=== PATIENT | male | born 1995 | race Hispanic/Latino ===

== ENCOUNTER 2024-09-21 21:31 | Emergency (ER) | payer SELFPAY ==
[~2024-09-21] VITALS: Ht 177.8 cm; Wt 81.6 kg
[2024-09-21 22:15] LABS: BASOPHILS # (AUTO) 0.03 K/uL (0.00-0.20); BASOPHILS % (AUTO) 0.2 % (0.0-5.0); EOSINOPHILS # (AUTO) 0.03 K/uL (0.00-0.70); EOSINOPHILS % (AUTO) 0.2 % (0.0-8.0); HEMATOCRIT 45.2 % (42-54); IMMATURE GRANULOCYTE ABSOLUTE 0.06 K/uL (0-1); LYMPHOCYTES # (AUTO) 1.4 K/uL (1.0-4.8); LYMPHOCYTES % (AUTO) 9.5 % (21.0-51.0); MEAN CORPUSCULAR HEMOGLOBIN 31.7 pg (27.0-33.0); MEAN CORPUSCULAR HGB CONC 34.1 g/dL (32.0-36.0); MONOCYTES # (AUTO) 0.5 K/uL (0.1-1.0); MONOCYTES % (AUTO) 3.5 % (3.0-13.0); NEUTROPHILS % (AUTO) 86.2 % (40.0-77.0); PLATELET COUNT (AUTO) 212 K/uL (130-400); RED BLOOD CELL COUNT(AUTO) 4.86 MIL/uL (4.50-6.20); RED CELL DISTRIBUTION WIDTH 12.6 % (11.0-15.5); WHITE BLOOD COUNT (AUTO) 15.1 K/uL (4.8-10.8)
[2024-09-21] MEDS: MAG/ALUM/SIMETH 30 ML UDCUP PO ONE (22:15)
[2024-09-21] MEDS: LIDOCAINE HCL 2% VISCOUS 15 ML UDCUP PO ONE (22:16)
[2024-09-21] MEDS: DICYCLOMINE HCL 10 MG/5 ML ML PO ONE (22:16)
[2024-09-21] MEDS: FAMOTIDINE 20MG VIAL IV STA (22:16)
[2024-09-21] MEDS: 0.9%NACL 1000ML 1,000 ML IV STA (22:16)
[2024-09-21] MEDS: ondanSETRON 4MG INJ IVP STA (22:16)
[2024-09-21 22:29] LABS: BILIRUBIN,TOTAL 0.8 mg/dL (0.2-1.0); TOTAL PROTEIN, SERUM 7.9 g/dL (6.0-8.3)
[2024-09-21 22:32] LABS: POTASSIUM 2.8 mmol/L (3.5-5.1)
[2024-09-21] MEDS: PoTASSium BIcarbonate/CIT AC 25 MEQ TABLET.EFF PO ONE (22:44)
[2024-09-21 23:28] LABS: APPEARANCE,URINE CLEAR (CLEAR); BILIRUBIN,URINE NEGATIVE (NEGATIVE); GLUCOSE, URINE (UA) NEGATIVE (NEGATIVE); KETONES,URINE 20 mg/dL (NEGATIVE); LEUKOCYTE ESTERASE ,URINE NEGATIVE Leu/uL (NEGATIVE); NITRATE,URINE NEGATIVE (NEGATIVE); OCCULT BLOOD,URINE NEGATIVE (NEGATIVE); PROTEIN,URINE NEGATIVE (NEGATIVE); UROBILINOGEN,URINE 0.2 mg/dL (0.2-1.0)
[2024-09-21 23:33] LABS: ADD UA MICROSCOPIC YES; COLOR,URINE Light-Yellow (YELLOW)
[2024-09-21 23:35] LABS: AMPHET/METH SCREEN,URINE NEGATIVE (NEGATIVE); BARBITURATE SCREEN, URINE NEGATIVE (NEGATIVE); BENZODIAZEPINES SCREEN,URINE NEGATIVE (NEGATIVE); CANNABINOID SCREEN,URINE POSITIVE (NEGATIVE); COCAINE SCREEN,URINE NEGATIVE (NEGATIVE); OPIATE SCREEN,URINE NEGATIVE (NEGATIVE); PHENCYCLIDINE SCREEN,URINE NEGATIVE (NEGATIVE)
[2024-09-21 23:37] LABS: RBC,URINE 0-1 /HPF (0-1); WBC,URINE 0-1 /HPF (0-1)
[2024-09-22] MEDS: LORazepam 2 MG/ML 1 ML VIAL IVP STA (00:44)
[2024-09-22 00:45] VITALS: BP 149/49; PULSE 51; RESP 20; TEMP 98.4; O2SAT 100
--- NOTE | 2024-09-22 01:06 | ERN ---
ED Note History of Present Illness Stated Complaint: EPIGASTRIC PAIN, VOMITING X 5 EPISODES Chief Complaint: Abdominal Pain Time Seen by MD: 21:44 Time Seen by Midlevel: 21:49 Dictation: 29-year-old male with a history of seizures and anxiety coming in complaining of epigastric pain onset 1 hour prior to arrival while he was eating. Patient states he has had five episodes of vomiting, no blood. Denies any fever, cough, diarrhea, congestion. Allergies: Coded Allergies: No Known Allergies (Unverified Allergy, Unknown, 09/21/24) Past Medical History Past Medical History: Anxiety, Seizure Surgical History: None Review of System Dictation Constitutional: Negative for fever,chills, and weight loss Eyes: Negative for injury, pain,redness, and discharge ENT: Negative for injury,pain or swelling Cardiovascular: Negative for chest pain, palpitations, and edema Respiratory: Negative for shortness of breath, cough, and wheezing, Abdomen/GI: Complaining of epigastric pain, nausea and vomiting, no diarrhea, and no constipation Back: Negative for injury and pain : Negative for injury, bleeding and discharge MS/Extremity: Negative for injury and deformity Skin: Negative for rash, and discoloration Neuro: Negative for headache, weakness, numbness, tingling, and seizure Psych: Negative for suicide ideation, homicidal ideation, and hallucinations Review of Systems: was completed Initial Vital Sign VS Vital Signs Date Time Temp Pulse Resp B/P (MAP) Pulse Ox O2 Delivery O2 Flow Rate FiO2 09/21/24 21:33 98.1 62 22 144/72 100 Room Air 0 09/21/24 21:33 21 Physical Exam Dictation General: awake, alert, NAD Head/Face: Normocephalic, atraumatic Eyes: PERRL, EOMI, vision at baseline ENT: oral cavity clear, TMs clear, no signs of infection Neck: Trachea midline, supple, no nuchal rigidity Cardiovascular: RRR, normal S1/S2, No MRGs, no JVD Respiratory: CTAB, no respiratory distress, No rales or wheezes Abdomen: Soft, non-tender, non-distended, normal bowel sounds, no guarding or rebound. Skin: Warm, dry, normal turgor, no rash MS/Extremity: Pulses equal, no cyanosis, neurovascular intact, FROM Neuro: COAx4, GCS 15, strength 5/5, CN 2-12 intact, normal cerebellar exam, normal gait, Psych: Normal behavior, mood, and affect normal Results (Laboratory/Radiology) Laboratory/Radiology Laboratory Tests Test 09/21/24 22:04 09/21/24 23:18 09/22/24 01:16 09/22/24 01:37 White Blood Count 15.1 K/uL (4.8-10.8) H Red Blood Count 4.86 MIL/uL (4.50-6.20) Hemoglobin 15.4 g/dL (14.0-18.0) Hematocrit 45.2 % (42-54) Mean Corpuscular Volume 93.0 fL (79-99) Mean Corpuscular Hemoglobin 31.7 pg (27.0-33.0) Mean Corpuscular Hemoglobin Concent 34.1 g/dL (32.0-36.0) Red Cell Distribution Width 12.6 % (11.0-15.5) Platelet Count 212 K/uL (130-400) Mean Platelet Volume 11.6 fL (7.5-10.5) H Immature Granulocyte % (Auto) 0.4 % (0-1) Neutrophils (%) (Auto) 86.2 % (40.0-77.0) H Lymphocytes (%) (Auto) 9.5 % (21.0-51.0) L Monocytes (%) (Auto) 3.5 % (3.0-13.0) Eosinophils (%) (Auto) 0.2 % (0.0-8.0) Basophils (%) (Auto) 0.2 % (0.0-5.0) Neutrophils # (Auto) 13.0 K/uL (1.8-7.7) H Lymphocytes # (Auto) 1.4 K/uL (1.0-4.8) Monocytes # (Auto) 0.5 K/uL (0.1-1.0) Eosinophils # (Auto) 0.03 K/uL (0.00-0.70) Basophils # (Auto) 0.03 K/uL (0.00-0.20) Absolute Immature Granulocyte (auto 0.06 K/uL (0-1) Nucleated Red Blood Cells 0.0 % (0.0-0.19) White Cell Morphology Comment See comments Sodium Level 142 mmol/L (136-145) Potassium Level 2.8 mmol/L (3.5-5.1) *L 3.8 mmol/L (3.5-5.1) Chloride Level 103 mmol/L (101-111) Carbon Dioxide Level 26 mmol/L (21-32) Blood Urea Nitrogen 6 mg/dL (7-18) L Creatinine 1.0 mg/dL (0.5-1.3) Glomerular Filtration Rate Calc 106 mL/min (>90) Random Glucose 113 mg/dL (70-105) H Total Calcium 9.1 mg/dL (8.5-10.1) Total Bilirubin 0.8 mg/dL (0.2-1.0) Aspartate Amino Transf (AST/SGOT) 10 U/L (10-37) Alanine Aminotransferase (ALT/SGPT) 14 U/L (12-78) Alkaline Phosphatase 80 U/L (50-136) Total Protein 7.9 g/dL (6.0-8.3) Albumin 4.0 g/dL (3.5-5.0) Lipase 84 U/L (16-77) H Urine Color Light-Yellow (YELLOW) Urine Appearance CLEAR (CLEAR) Urine pH 8.0 (5.0-8.0) Urine Specific [place] 1.008 (1.001-1.031) Urine Protein NEGATIVE mg/dL (NEGATIVE) Urine Glucose (UA) NEGATIVE mg/dL (NEGATIVE) Urine Ketones 20 mg/dL (NEGATIVE) H Urine Occult Blood NEGATIVE (NEGATIVE) Urine Nitrate NEGATIVE (NEGATIVE) Urine Bilirubin NEGATIVE mg/dL (NEGATIVE) Urine Urobilinogen 0.2 mg/dL (0.2-1.0) Urine Leukocyte Esterase NEGATIVE Jeffrey/uL Urine RBC 0-1 /HPF (0-1) Urine WBC 0-1 /HPF (0-1) Urine Bacteria None /HPF (None Seen) Urine Opiates Screen NEGATIVE (NEGATIVE) Urine Barbiturates Screen NEGATIVE (NEGATIVE) Urine Phencyclidine Screen NEGATIVE (NEGATIVE) Urine Amphetamines Screen NEGATIVE (NEGATIVE) Urine Benzodiazepines Screen NEGATIVE (NEGATIVE) Urine Cocaine Screen NEGATIVE (NEGATIVE) Urine Marijuana (THC) Screen POSITIVE (NEGATIVE) H Blood Gas Specimen Type Venous Venous Blood pH 7.336 (7.320-7.430) Venous Blood pCO2 at Patient Temp 7 (38-54) *L Venous Blood pO2 at Patient Temp 106.2 mmHg (23.0-48.0) H Venous Blood HCO3 3.9 (22.0-29.0) L Venous Blood Base Excess -18.0 (-2.0-3.0) L Sodium (Blood Gas) 147 MMOL/L (136-145) H Bedside Potassium (Blood Gas) < 1.5 MMOL/L (3.4-4.5) *L Bedside Chloride (Blood Gas) > 126 MMOL/L (98-107) *H Bedside Ionized Calcium (Blood Gas) < 0.50 MMOL/L (1.15-1.33) L Bedside Lactic Acid (Blood Gas) < 0.50 MMOL/L (0.36-0.75) Blood Gas Temperature 37.0 CELSIUS (35.5-37.0) FiO2 21.0 % Blood Gas Specimen Comment IV RH Labs Reviewed?: Yes ED Course ED Course Orders Procedure Category Date Status Time Cbc With Differential LAB 09/21/24 Complete 21:54 Comprehensive LAB 09/21/24 Complete Metabolic Panel 21:54 Lipase LAB 09/21/24 Complete 21:54 Urinalysis Profile LAB 09/21/24 Complete 21:54 Drug Screen Urine LAB 09/21/24 Complete 21:54 0.9%Nacl 1000ml (Ns PHA 09/21/24 Complete 1000ml) 21:54 Ondansetron 4mg Inj PHA 09/21/24 Complete (Zofran 4mg Inj) 21:54 Famotidine 20mg Vial PHA 09/21/24 Complete (Pepcid 20mg Vial) 21:54 Lidocaine Hcl 2% PHA 09/21/24 Complete Viscous (Lidocaine Hcl 22:00 Mag/Alum/Simeth 30ml PHA 09/21/24 Complete (Maalox Plus 30ml) 22:00 Dicyclomine Hcl PHA 09/21/24 Complete (Bentyl 10mg/5ml 22:00 Potassium Bicarb/Cit PHA 09/21/24 Complete Ac 25meq (K-Lyte Ta 23:00 Lorazepam 2 Mg PHA 09/22/24 Complete (Ativan) 00:25 Venous Blood Gas + RT 09/22/24 Transmitted 01:03 Venous Blood Gas Plus LAB 09/22/24 In Process 01:16 Potassium LAB 09/22/24 Complete 01:19 Current Medications Medications (Trade) Dose Ordered Sig/Nora Route PRN Reason Start Time Stop Time Status Last Admin Dose Admin Al Hydroxide/Mg Hydroxide (MAALox PLUS 30ML) 30 ml ONCE ONCE PO 09/21/24 22:00 09/21/24 22:01 DC 09/21/24 22:15 Dicyclomine HCl (Bentyl 10mg/5ml Syrup) 10 mg ONCE ONCE PO 09/21/24 22:00 09/21/24 22:01 DC 09/21/24 22:16 Famotidine (Pepcid 20mg Vial) 20 mg ONCE STAT IV 09/21/24 21:54 09/21/24 21:56 DC 09/21/24 22:16 Lidocaine HCl (Lidocaine HCl 2% Viscous) 10 ml ONCE ONCE PO 09/21/24 22:00 09/21/24 22:01 DC 09/21/24 22:16 Lorazepam (AtiVAN) 1 mg ONCE STAT IVP 09/22/24 00:25 09/22/24 00:28 DC 09/22/24 00:44 Ondansetron HCl (zoFRAN 4MG INJ) 4 mg ONCE STAT IVP 09/21/24 21:54 09/21/24 21:56 DC 09/21/24 22:16 Potassium Bicarbonate (K-Lyte Tablet Eff 25 Meq Tablet.eff) 50 meq ONCE ONCE PO 09/21/24 23:00 09/21/24 23:01 DC 09/21/24 22:44 Sodium Chloride 1,000 ml @ 1,000 mls/hr Q1H STAT IV 09/21/24 21:54 09/21/24 22:53 DC 09/21/24 22:16 Vital Signs Date Time Temp Pulse Resp B/P (MAP) Pulse Ox O2 Delivery O2 Flow Rate FiO2 09/22/24 00:45 98.4 51 20 149/49 100 Room Air* 0 21 09/21/24 21:33 98.1 62 22 144/72 100 Room Air* 0 21 09/21/24 21:33 98.1 62 22 144/72 100 Room Air 0 Medical Decision Making MDM MDM:29-year-old male with a history of seizures and anxiety coming in complaining of epigastric pain onset 1 hour prior to arrival while he was eating. Patient states he has had five episodes of vomiting, no blood. Denies any fever, cough, diarrhea, congestion. CBC shows leukocytosis of 15, this could be related to vomiting multiple times. No anemia, no thrombocytopenia. Chemistry shows hypokalemia at 2.8, replacement given in the emergency room. Repeat potassium is 3.8. Function. Lipase is mildly elevated at 84, no transaminitis, T bili within normal range. Urine does not show any urinary tract infection. Toxicology positive for THC. Fluids, potassium, Zofran, and Ativan given for vomiting. We will prescribe patient has Zofran to take at home for nausea or vomiting. Educated to stop smoking marijuana. Follow up with PCP in 1-2 days. Differential diagnosis: Gastroenteritis, gastroparesis, drug use, dehydration Rationale: Tests considered and ordered secondary to shared decision making include: Previous outside records reviewed: Old ER visits. Risk of complication and/or morbidity or mortality of patient management: None Medications-Per medication reconciliation Need for hospitalization: Patient does not meet criteria for hospitalization. Need for emergency major/minor surgery: No There are no social concerns with this patient. Prescription drug management Prescriptions will include symptomatic care Patient's prior external medical records from other ER visits were reviewed by me as indicated. Prior testing and results from previous visits were reviewed. Prior tests were taken into account with medical decision making and resource utilization, independent historian/historians were used to obtain complete medical history. I independently interpreted the test that were performed, results were reviewed by me and considered findings on radiology if ordered. Medical management and examination interpretation discussions were had by me with other qualified healthcare professionals as indicated for the patient's care. DX & DISP Disposition: Discharge Departure Impression: Primary Impression: Nausea & vomiting Additional Impressions: Hypokalemia, Marijuana abuse Condition: Stable Scripts Ondansetron (Ondansetron Odt) 4 Mg Tab.rapdis 4 MG PO Q6HPRN PRN for nausea, #16 TAB 0 Refills Prov: CHERELLE BAUER NP 09/22/24 Referrals: ALBERTO BACK MD (PCP) Time of Disposition: 01:57 I have reviewed the case, and I agree with, Diagnosis and Plan CHERELLE BAUER NP Sep 22, 2024 01:06
[2024-09-22 01:17] LABS: DEVICE COMMENT IV RH; HCO3,VENOUS BLOOD GAS 3.9 (22.0-29.0); PCO2,VENOUS BLOOD GAS 7 (38-54); PH,VENOUS BLOOD GAS 7.336 (7.320-7.430); PO2,VENOUS BLOOD GAS 106.2 mmHg (23.0-48.0)
[2024-09-22] MEDS ORDERED: DICYCLOMINE HCL 20 MG TAB PO STA (01:56)
[2024-09-22] MEDS ORDERED: ONDA-243 PO (01:59)
[2024-09-22] MEDS: DICYCLOMINE HCL 10 MG/5 ML ML PO ONE (02:24)
== END 2024-09-22 02:26 | disposition home or self-care (01) ==
LOC: EDH 21:31
DX: R11.2 Nausea with vomiting, unspecified (principal); E87.6 Hypokalemia; F12.10 Cannabis abuse, uncomplicated; F41.9 Anxiety disorder, unspecified
CPT/HCPCS: 99284; 96374; 96375 ×2; 82947; 80053; 82803; 80305; 83690; 85025; 83605; 36415 ×2; 82435; 84132 ×2; 84295; 81001; 36600; J3490; J7030; J2405; J2060

== ENCOUNTER 2025-02-10 17:40 | Emergency (ER) | payer SELFPAY ==
[~2025-02-10] VITALS: Ht 177.8 cm; Wt 81.6 kg
[~2025-02-10 17:40] MED LIST: ONDA-243 PO
[2025-02-10] MEDS: 0.9%NACL 1000ML 1,000 ML IV ONE (18:48)
[2025-02-10] MEDS: hydrOXYzine 50MG VIAL 50 MG/ML VIAL IM ONE (18:49)
[2025-02-10 19:15] LABS: CREATININE 0.9 mg/dL (0.5-1.3)
[2025-02-10 19:20] LABS: POTASSIUM 2.9 mmol/L (3.5-5.1)
[2025-02-10 19:26] LABS: BASOPHILS # (AUTO) 0.05 K/uL (0.00-0.20); BASOPHILS % (AUTO) 0.5 % (0.0-5.0); EOSINOPHILS # (AUTO) 0.07 K/uL (0.00-0.70); EOSINOPHILS % (AUTO) 0.7 % (0.0-8.0); HEMATOCRIT 42.5 % (42-54); IMMATURE GRANULOCYTE ABSOLUTE 0.03 K/uL (0-1); LYMPHOCYTES # (AUTO) 1.5 K/uL (1.0-4.8); MEAN CORPUSCULAR HEMOGLOBIN 32.7 pg (27.0-33.0); MEAN CORPUSCULAR HGB CONC 35.3 g/dL (32.0-36.0); MEAN CORPUSCULAR VOLUME 92.6 fL (79-99); MONOCYTES # (AUTO) 0.6 K/uL (0.1-1.0); MONOCYTES % (AUTO) 5.7 % (3.0-13.0); NEUTROPHILS # (AUTO) 7.4 K/uL (1.8-7.7); NEUTROPHILS % (AUTO) 76.8 % (40.0-77.0); PLATELET COUNT (AUTO) 216 K/uL (130-400); RED BLOOD CELL COUNT(AUTO) 4.59 MIL/uL (4.50-6.20); RED CELL DISTRIBUTION WIDTH 12.1 % (11.0-15.5); WHITE BLOOD COUNT (AUTO) 9.6 K/uL (4.8-10.8)
[2025-02-10] MEDS: PoTASSium BIcarbonate/CIT AC 25 MEQ TABLET.EFF PO SCH (19:47)
[2025-02-10] MEDS: diazePAM 5 MG/ML 2 ML SYG IVP SCH (19:47)
--- NOTE | 2025-02-10 19:56 | ERN ---
General Chief Complaint: Anxiety/Panic Attack Stated Complaint: MULTIPLE COMPLAINTS,AMA Time Seen by MD: 17:46 Time Seen by Midlevel: 17:46 Source: patient History of Present Illness Initial Comments Patient is a 29-year-old male presenting to the emergency department for evaluation of anxiety. According to the dad the patient was had multiple stressors in his life. On arrival with the patient feels anxious. Denies any other symptoms Allergies: Coded Allergies: No Known Allergies (Unverified Allergy, Unknown, 09/21/24) Home Meds Active Scripts Ondansetron (Ondansetron Odt) 4 Mg Tab.rapdis, 4 MG PO Q6HPRN PRN for nausea, #16 TAB 0 Refills Prov:CHERELLE BAUER NP 09/22/24 Past Medical History Past Medical History: Anxiety, Seizure Past Surgical History: None ROS Dictation CONSTITUTIONAL: Negative except for HPI HEAD/FACE: Negative except for HPI EENT: Negative except for HPI RESPIRATORY: Negative except for HPI GASTROINTESTINAL/ABDOMINAL: Negative except for HPI GENITOURINARY: Negative except for HPI MUSCULOSKELETAL: Negative except for HPI INTEGUMENTARY: Negative except for HPI NEUROLOGICAL/PSYCH: Negative except for HPI HEMATOLOGIC/LYMPHATIC: Negative except for HPI All Systems Negative, Except as noted above. 13 point review of systems assessed and all negative except for above. Physical Exam Physical Exam Dictation Vital Signs reviewed General Appearance: Alert, oriented x 3, no acute distress, well developed, nourished anxious appearing Head and Face: non-traumatic. Eyes: PERRL, pink conjunctivas, eyelid no trauma, anterior chamber with arcus senilis. Ears: Pinnas intact and no signs of trauma or erythema ear canals clear and no discharge TM no erythema Nose: No discharge, no bleeding. Oropharynx: Mouth normal, tongue pink, pharynx clear,no erythema, tonsils no exudates, no abscesses noted, mucous membrane moist Neck: Supple, non-tender, no thyromegaly, no masses, no JVD, no bruits Breast:Deferred Chest:No tenderness, no crepitus, no paradoxical movement, no retractions Lungs:Clear, well-ventilated, symmetric, no rales, no wheezing, no rhonchi, no stridor, good breath sounds bilaterally Heart: Regular rate, regular rhythm, no murmur, no gallops Vascular: no peripheral edema, Abdomen: Soft, positive bowel sounds, nondistended, no guarding, nontender, no rebound, no masses no hepatomegaly, no splenomegaly, no Guzman's sign, no hernias. Rectal: Deferred Genital: Deferred Neurological: Normal speech, motor function intact, sensory function intact Musculoskeletal: Neck nontender, full range of motion, back nontender, full range of motion, Extremities: nontender, full range of motion Skin: Color pink, dry, no turgor, no rash, no lacerations, no abrasions, no contusions. Lymphatic: Deferred Results Laboratory and Microbiology Lab and Micro Result Laboratory Tests Test 02/10/25 18:48 White Blood Count 9.6 K/uL (4.8-10.8) Red Blood Count 4.59 MIL/uL (4.50-6.20) Hemoglobin 15.0 g/dL (14.0-18.0) Hematocrit 42.5 % (42-54) Mean Corpuscular Volume 92.6 fL (79-99) Mean Corpuscular Hemoglobin 32.7 pg (27.0-33.0) Mean Corpuscular Hemoglobin Concent 35.3 g/dL (32.0-36.0) Red Cell Distribution Width 12.1 % (11.0-15.5) Platelet Count 216 K/uL (130-400) Mean Platelet Volume 11.6 fL (7.5-10.5) H Immature Granulocyte % (Auto) 0.3 % (0-1) Neutrophils (%) (Auto) 76.8 % (40.0-77.0) Lymphocytes (%) (Auto) 16.0 % (21.0-51.0) L Monocytes (%) (Auto) 5.7 % (3.0-13.0) Eosinophils (%) (Auto) 0.7 % (0.0-8.0) Basophils (%) (Auto) 0.5 % (0.0-5.0) Neutrophils # (Auto) 7.4 K/uL (1.8-7.7) Lymphocytes # (Auto) 1.5 K/uL (1.0-4.8) Monocytes # (Auto) 0.6 K/uL (0.1-1.0) Eosinophils # (Auto) 0.07 K/uL (0.00-0.70) Basophils # (Auto) 0.05 K/uL (0.00-0.20) Absolute Immature Granulocyte (auto 0.03 K/uL (0-1) Nucleated Red Blood Cells 0.0 % (0.0-0.19) Sodium Level 143 mmol/L (136-145) Potassium Level 2.9 mmol/L (3.5-5.1) *L Chloride Level 104 mmol/L (101-111) Carbon Dioxide Level 32 mmol/L (21-32) Blood Urea Nitrogen 7 mg/dL (7-18) Creatinine 0.9 mg/dL (0.5-1.3) Glomerular Filtration Rate Calc 120 mL/min (>90) Random Glucose 116 mg/dL (70-105) H Total Calcium 9.3 mg/dL (8.5-10.1) Labs Reviewed?: Yes MDM MDM: Differential diagnosis: Anxiety, electrolyte abnormality, dehydration There are no social concerns with this patient. Prescription drug management Prescriptions will include: Hydroxyzine Medical management and examination interpretation discussions were had by me with other qualified healthcare professionals as indicated for the patient's care. ED Course Orders Procedure Category Date Status Time Cbc With Differential LAB 02/10/25 Complete 18:02 Basic Metabolic Panel LAB 02/10/25 Complete 18:02 Hydroxyzine 50mg Vial PHA 02/10/25 Complete (Atarax 50mg Inj) 19:00 0.9%Nacl 1000ml (Ns PHA 02/10/25 Complete 1000ml) 18:30 Potassium Bicarb/Cit PHA 02/10/25 In Process Ac 25meq (K-Lyte Ta 19:30 Diazepam 5 Mg/Ml 2 Ml PHA 02/10/25 In Process Syg (Valium 5 Mg/M 19:30 Current Medications Medications (Trade) Dose Ordered Sig/Nora Route PRN Reason Start Time Stop Time Status Last Admin Dose Admin Diazepam (VALium 5 MG/ML 2 ML SYG) 5 mg ONCE IVP 02/10/25 19:30 02/10/25 23:30 02/10/25 19:47 Hydroxyzine HCl (ATArax 50MG INJ) 50 mg ONCE ONCE IM 02/10/25 19:00 02/10/25 19:01 DC 02/10/25 18:49 Potassium Bicarbonate (K-Lyte Tablet Eff 25 Meq Tablet.eff) 50 meq ONCE PO 02/10/25 19:30 02/10/25 23:30 02/10/25 19:47 Sodium Chloride 1,000 ml @ 0 mls/hr ONCE ONCE IV 02/10/25 18:30 02/10/25 18:37 DC 02/10/25 18:48 Vital Signs Date Time Temp Pulse Resp B/P (MAP) Pulse Ox O2 Delivery O2 Flow Rate FiO2 02/10/25 18:25 98.4 84 18 132/89 98 Room Air* 0 21 02/10/25 17:54 98.4 84 18 132/89 98 Room Air DX & DISP Disposition: Discharge Departure Impression: Primary Impression: Hypokalemia Additional Impression: Anxiety Condition: Stable Scripts Hydroxyzine HCl (Hydroxyzine HCl) 10 Mg Tablet 1 TAB PO HS for anxiety for 30 Days, #30 TAB 0 Refills Prov: NEAL SLADE 02/10/25 Referrals: ALBERTO BACK MD (PCP) I have reviewed the case, and I agree with, Diagnosis and Plan I performed the substantive portion of the visit. I have reviewed and personally made and approve the management plan that is documented in the note by myself or the [facility]. I acknowledge for responsibility for the patient's management plan. NEAL SLADE February 10, 2025 19:56
[2025-02-10] MEDS ORDERED: HYDR-3830 PO (20:02)
[2025-02-10 20:16] VITALS: BP 128/78; PULSE 80; RESP 18; TEMP 98.4; O2SAT 98
== END 2025-02-10 20:21 | disposition home or self-care (01) ==
LOC: EDH 17:40
DX: E87.6 Hypokalemia (principal); F41.9 Anxiety disorder, unspecified
CPT/HCPCS: 99284; 96374; 80048; 85025; 36415; 96372; J3410; J7030; J3360